=== PATIENT | female | born 2000 | race Caucasian/White ===

== ENCOUNTER 2023-09-25 19:05 | Emergency (ER) | payer BC ==
[~2023-09-25] VITALS: Ht 160 cm; Wt 54.0 kg
[2023-09-25 19:12] VITALS: TEMP 98.9; O2SAT 100
[2023-09-25 20:00] VITALS: BP 110/71; PULSE 112; RESP 18
[2023-09-25] MEDS: KETOROLAC 15MG/ML VIAL IM ONE (20:00)
== END 2023-09-25 23:53 | disposition home or self-care (01) ==
LOC: ER 19:05
DX: N83.201 Unspecified ovarian cyst, right side (principal); F32.9 Major depressive disorder, single episode, unspecified; G43.909 Migraine, unspecified, not intractable, without status migrainosus; Z98.890 Other specified postprocedural states; Z30.431 Encounter for routine checking of intrauterine contraceptive device
CPT/HCPCS: 76830; 76856; 96372; 99285; J1885; Z7610